=== PATIENT | female | born 1955 | race African-American/Black ===

== ENCOUNTER → 2022-03-25 | Day surgery (SDC) | payer MEDICARE, MEDICAID ==
[~2022-03-25] VITALS: Ht 162.6 cm; Wt 84.0 kg
[~2022-03-25] MED LIST: AMLO-187 PO; ASPI-630 PO; IV RINGERS,LACTATED 1000ML 1,000 ML IV SCH; LOVA40TA2 PO; METO25TA4 PO; PROPOFOL 10 MG/ML (20ML) VIAL. IV ONE; fentaNYL PF VIAL 100 MCG/2 ML VIAL IVP PRN
[2022-03-25 07:30] VITALS: BP 132/71
[2022-03-25 09:00] VITALS: BP 133/84
--- NOTE | 2022-03-29 18:07 | PATHOLOGY ---
[facility] Accession Number: [id number] . 01 Material submitted: . esophagus - DISTAL ESOPHAGUS BIOPSY . 01 Clinical history: . EPIGASTRIC PAIN CRC SCREEN HX-COLON POLYPS EGD/COLONOSCOPY . 02 Diagnosis: Esophageal biopsies, distal esophagus: - Reflux changes. (JPM:pit; 03/29/2022) [facility] 03/29/2022 1238 Local . 02 Comment: Sections of the distal esophageal biopsy reveal segments of tangentially oriented, hyperplastic squamous esophageal mucosa with focal contiguous superficial gastric cardia mucosa. The findings are consistent with reflux changes. There is no evidence of Agrawal's change, dysplasia, or malignancy. (JPM:pit; 03/29/2022) . 02 Electronically signed: . Mathew Ruiz MD, Pathologist NPI- [id number] . 01 Gross description: . The specimen is received in formalin, labeled "Julio, Dee Dee, distal esophagus BX". Received are 4 segments of pale vega tissue ranging in size from 0.3 to 0.7 cm in maximum dimensions. The specimen is submitted entirely in cassette A1.([facility]; 03/28/2022) [facility] 03/28/2022 1102 Local . 02 Pathologist provided ICD-10: K21.9 . 02 CPT . 779389 Specimen Comment: A courtesy copy of this report has been sent to [phone], [phone] Specimen Comment: [id number] Specimen Comment: Report sent to / DR CUETO Performed at: 01 [facility] [address], [place], [place] [id number] MD Apollo Nicole MD Phone: [phone] Performed at: 02 [facility] [address] [place], [place] [id number] MD Mathew Ruiz MD Phone: [phone]
== END | disposition home or self-care (01) ==
LOC: ENDOS 06:56
PROVIDERS: ATTEND Internal Medicine Gastroenterology
DX: Z12.11 Encounter for screening for malignant neoplasm of colon (principal); K21.00 Gastro-esophageal reflux disease with esophagitis, without bleeding; K64.0 First degree hemorrhoids; K63.89 Other specified diseases of intestine; K31.89 Other diseases of stomach and duodenum; I10 Essential (primary) hypertension; Z79.82 Long term (current) use of aspirin; Z79.899 Other long term (current) drug therapy; Z98.890 Other specified postprocedural states; Z88.6 Allergy status to analgesic agent
CPT/HCPCS: 43239; 88305; G0121; J2704; 45378